=== PATIENT | female | born 1940 | race Caucasian/White ===

== ENCOUNTER 2019-01-14 06:49 | Inpatient (IN) | payer MEDICARE, OTHER ==
[2019-01-14] MEDS ORDERED: NS 0.9% 1000 ML** 1,000 ML IV ONE ×2 (07:18→11:47)
[2019-01-14] MEDS ORDERED: Morphine 4 MG/ML VIAL (1 ml) 4 MG/ML VIAL IV ONE (07:18)
[2019-01-14] MEDS ORDERED: Morphine 10 MG/ML VIAL (1 ml) IV ONE (07:18)
--- NOTE | 2019-01-14 07:25 | ED ---
Abdominal Pain/Female - HPI Summary HPI Summary: Pt is an 78 y/o F presenting to the ED for a chief complaint of abdominal pain onset at 01:00 this date that is still present in the middle of her abd and radiates to her back. She reports it beginning with N/V/D, fever, chills, and diaphoresis. She states she has frequently had similar sx, initially beginning 10 yrs ago for which she was treated with abx for a bowel blockage that developed into sepsis, causing her to spend 1 month in the ICU. The most recent episode was 1yr ago on vacation in [place] which she was given pain medication and abx for. She has had a partial colectomy. She denies vaginal discharge, vaginal bleeding, dysuria, hematuria, or blood in the vomit or stool. She notes hx of skipped heartbeats for which she takes medication. Denies a PMHx of DM or HTN. She is allergic to contrast dye and shellfish, but she is unsure the last time she had IV contrast dye. Medications reviewed. Allergies noted. - History of Current Complaint Chief Complaint: EDAbdPain Stated Complaint: ABD PAIN PER EMS Time Seen by Provider: 01/14/19 06:59 Hx Obtained From: Patient Onset/Duration: Sudden Onset, Lasting Hours, Still Present Timing: Hours Severity Initially: Moderate Severity Currently: Moderate Pain Intensity: 7 Pain Scale Used: 0-10 Numeric Location: Diffuse Radiates: Yes Radiates to: Back Aggravating Factor(s): Nothing Associated Signs and Symptoms: Positive: Diaphoresis, Fever, Back Pain, Nausea, Vomiting, Diarrhea. Negative: Blood in Stool, Urinary Symptoms, Vaginal Bleeding, Vaginal Discharge Allergies/Adverse Reactions: Allergies Allergy/AdvReac Type Severity Reaction Status Date / Time Iodinated Contrast Media Allergy Rash Verified 01/14/19 06:56 Home Medications: Home Medications Aspirin 325 mg PO DAILY 01/14/19 [History Confirmed 01/14/19] Digoxin 0.125 mg PO DAILY 01/14/19 [History Confirmed 01/14/19] Flecainide Acetate 50 mg PO BID 01/14/19 [History Confirmed 01/14/19] Oxazepam 10 mg PO DAILY 01/14/19 [History Confirmed 01/14/19] Premarin 0.625 mg VAGINAL DAILY 01/14/19 [History Confirmed 01/14/19] Simvastatin 20 mg PO DAILY 01/14/19 [History Confirmed 01/14/19] Synthroid 50 mcg PO DAILY 01/14/19 [History Confirmed 01/14/19] PMH/Surg Hx/FS Hx/Imm Hx Previously Healthy: Yes Endocrine/Hematology History: Denies: Hx Diabetes Cardiovascular History: Denies: Hx Hypertension Infectious Disease History: No Infectious Disease History: Denies: Traveled Outside the [place] in Last 30 Days - Social History Lives: With Family Alcohol Use: Daily Alcohol Amount: glass of wine Hx Substance Use: No Substance Use Type: Reports: None Hx Tobacco Use: No Smoking Status (MU): Never Smoked Tobacco Review of Systems Positive: Fever, Chills, Skin Diaphoresis Positive: Abdominal Pain, Vomiting, Diarrhea, Nausea. Negative: Other - blood in stool or vomit Positive: other - negative vaginal bleeding. Negative: dysuria, discharge, hematuria All Other Systems Reviewed And Are Negative: Yes Physical Exam - Summary Physical Exam Summary: Constitutional: Well-developed, Well-nourished, Alert. (-) Distressed Skin: Warm, Dry HENT: Normocephalic; Atraumatic Eyes: Conjunctiva normal Neck: Musculoskeletal ROM normal neck. (-) JVD, (-) Stridor, (-) Tracheal deviation Cardio: Rhythm regular, rate normal, Heart sounds normal; Intact distal pulses; The pedal pulses are 2+ and symmetric. Radial pulses are 2+ and symmetric. (-) Murmur Pulmonary/Chest wall: Effort normal. (-) Respiratory distress, (-) Wheezes, (-) Rales Abd: Soft, (-) tenderness, (-) Distension, (-) Guarding, (-) Rebound. Tenderness in the mid-epigastrium, LUQ, and RUQ. Musculoskeletal: (-) Edema Lymph: (-) Cervical adenopathy Neuro: Alert, Oriented x3 Psych: Mood and affect Normal Triage Information Reviewed: Yes Vital Signs On Initial Exam: Initial Vitals Pulse Pulse Ox 81 95 01/14/19 06:51 01/14/19 06:51 Vital Signs Reviewed: Yes Diagnostics - Vital Signs Vital Signs Temp Pulse Resp BP Pulse Ox 01/14/19 07:00 84 94 01/14/19 06:53 86 194/78 96 01/14/19 06:52 97.0 F 77 16 194/78 94 01/14/19 06:51 81 95 - Laboratory Result Diagrams: 01/14/19 07:26 01/14/19 07:26 Lab Statement: Any lab studies that have been ordered have been reviewed, and results considered in the medical decision making process. - CT CT Abdomen/Pelvis CT Interpretation Completed By: Radiologist Summary of CT Findings: CT abdomen/pelvis IMPRESSION: 1. DISTENDED AND MILDLY DILATED LOOPS OF SMALL BOWEL PROXIMALLY WITH DECOMPRESSED LOOPS. DISTALLY CONSISTENT WITH EARLY OR PARTIAL/INTERMITTENT SMALL BOWEL OBSTRUCTION. 2. SMALL AMOUNT OF FREE FLUID WITHIN THE ABDOMEN. Reviewed by ED physician. Re-Evaluation - Re-Evaluation 1st re-eval Re-Evaluation Time: 10:39 Change: Unchanged Comment: Pt does not want to stay in hospital. Will discuss with and reaccess. 2nd re-eval Re-Evaluation Time: 10:54 Change: Unchanged Comment: Pt agrees to stay in the hospital. Abdominal Pain Fem Course/Dx - Course Course Of Treatment: Patient is here with a partial bowel obstruction. Patient Leia performed which is grossly unremarkable. Patient's a partial bowel OBSTRUCTION PER her CT scan. Patient is admitted to medicine with a surgery consult. - Diagnoses Provider Diagnoses: Partial bowel obstruction, Left sided abdominal pain, Nausea & vomiting - Provider Notifications Discussed Care Of Patient With: Mellissa Lunsford Time Discussed With Above Provider: 10:56 Instructed by Provider To: Admit As Inpatient Discharge ED - Sign-Out/Discharge Documenting (check all that apply): Patient Departure - Discharge Plan Condition: Stable Disposition: ADMITTED TO [facility] - Billing Disposition and Condition Condition: STABLE Disposition: Admitted to [facility] - Attestation Statements Document Initiated by Alissaibe: Yes Documenting Scribe: Tenisha Woodard Provider For Whom Johanne is Documenting (Include Credential): Jace Rodriguez MD. Scribe Attestation: Tari Santana Kathryn O'Connor, alissaibed for Jace Rodriguez MD. on 01/14/19 at 1820. Scribe Documentation Reviewed: Yes Provider Attestation: The documentation as recorded by the scribe, Tenisha Woodard accurately reflects the service I personally performed and the decisions made by , Jace Rodriguez MD. Status of Scribe Document: Viewed Consult Consult: I spoke with Dr. Rodriguez in Surgery at 1029 who will evaluate the pt and I will speak to hospitalist soon. 1056 - I spoke with Dr. Lunsford who will be accepting the pt to [facility].
[2019-01-14 07:37] LABS: ABS Lymphocytes 0.6 10^3/ul (1.0-4.8); ABS Monocytes 0.4 10^3/ul (0-0.8); ABS Neutrophils 8.6 10^3/ul (1.5-7.7); Eosinophil % 0.2 %; Hematocrit 42 % (35-47); Hemoglobin 14.7 g/dL (12.0-16.0); Lymphocyte % 6.5 %; Mean Corpuscular HGB Conc 35 g/dL (31-36); Mean Corpuscular Hemoglobin 34 pg (27-31); Mean Corpuscular Volume 97 fL (80-97); Mean Platelet Volume 7.5 fL (7.4-10.4); Platelet Count 259 10^3/uL (150-450); Red Blood Count 4.35 10^6 /uL (3.70-4.87); Red Cell Distribution Width 13 % (10-15); White Blood Count 9.7 10^3/uL (3.5-10.8)
[2019-01-14 07:56] LABS: Albumin 4.4 g/dL (3.2-5.2); Albumin/Globulin Ratio 1.6 (1-3); BUN/Creatinine Ratio 25.4 (8-20); Calcium 9.8 mg/dL (8.6-10.3); EGFR African American 95.8 (>60); EGFR Non-African American 79.2 (>60); Globulin 2.7 g/dL (2-4); Potassium 4.5 mmol/L (3.5-5.0); Total Bilirubin 0.5 mg/dL (0.2-1.0); Total Protein 7.1 g/dL (6.4-8.9)
[2019-01-14 09:07] LABS: Urine Appearance Cloudy; Urine Bilirubin Negative (Negative); Urine Blood Negative (Negative); Urine Color Yellow; Urine Glucose Negative (Negative); Urine Ketones Negative (Negative); Urine Nitrite Negative (Negative); Urine Protein Negative (Negative); Urine Specific Gravity 1.005 (1.010-1.030); Urine Urobilinogen Negative (Negative)
[2019-01-14] MEDS ORDERED: Ondansetron INJ* 2 MG/ML VIAL IV ONE (11:47)
[2019-01-14] MEDS ORDERED: hydrALAZINE IV* 20 MG/ML VIAL IV SLOW PU PRN (12:38)
[2019-01-14] MEDS ORDERED: Al Hydrox/Mg Hydrox/Simet LIQ* 30 ML UDC PO PRN (13:16)
[2019-01-14 13:20] LABS: Digoxin 0.7 ng/ml (0.8-2.0)
[2019-01-14] MEDS ORDERED: Lactated Ringers 1000 ML Bag* 1,000 ML IV ONE (13:24)
[2019-01-14] MEDS ORDERED: Lorazepam PYXIS KEY PRN (13:32)
[2019-01-14] MEDS ORDERED: LORazepam INJ* 2 MG/ML 1 ML VIAL IV PUSH PRN (13:32)
[2019-01-14] MEDS ORDERED: hydrALAZINE IV* 20 MG/ML VIAL IV SLOW PU ONE (14:20)
[2019-01-14] MEDS: Morphine INJ* 2 MG/ML 1 ML SYRINGE (TWO MG - NEW SYRINGE VERSION) IV PRN ×2 (14:29→21:55)
[2019-01-14] MEDS: Heparin VIAL(*) 5000 UNITS/ML VIAL (FIVE THOUSAND) SUBCUT SCH ×2 (14:29→21:55)
[2019-01-14] MEDS: NS 0.9% 1000 ML** 1,000 ML IV SCH (14:36)
--- NOTE | 2019-01-14 15:35 | HP ---
ADMISSION HISTORY AND PHYSICAL: DATE OF ADMISSION: 01/14/19 PRIMARY CARE PROVIDER: Physician in [place]. ATTENDING PHYSICIAN WHILE IN THE HOSPITAL: Dr. Jovani Bailey * (dictated by SHELBY Lockhart). CHIEF COMPLAINT: Abdominal pain, nausea, vomiting, and diarrhea. HISTORY OF PRESENT ILLNESS: Teresita Howard is an 78-year-old white female with past medical history significant for perforated SBO, status post bowel resection ; hypothyroidism; atrial fibrillation; anxiety; hyperlipidemia, who presents to the emergency department due to abdominal pain x2 days. The patient noted that she also started to have some abdominal distention starting yesterday. Starting at 1 o'clock this morning, the patient began having nausea, vomiting, and diarrhea. Her tells me that the vomiting was black or dark brown and her stool was the same color. Denies bright red blood in vomitus or per rectum. Denies coffee-ground emesis. During this episode of the onset of the vomiting and diarrhea, the patient was also feeling diaphoretic as well as feeling symptomatic fever and chills. She did not check her temperature as she is staying in a hotel. She and her are visiting from [place] and have been in the [facility] for 12 days and they had plans to leave tomorrow. The patient does understand that her hospitalization may require a longer stay than 1 overnight and agrees that it would be reasonable to stay longer if needed considering her medical situation. She denies chest pain, difficulty breathing, visual changes, headache. Denies dysuria or hematuria. ED COURSE: The patient arrived to the emergency department with vital signs of temperature 97.0 degrees Fahrenheit, pulse rate of 81, respiratory rate of 16, oxygen saturation 95% on room air, blood pressure of 194/78. The patient tells me her diffuse abdominal pain has been well controlled with morphine in the emergency department and she does feel that her nausea improved after receiving Zofran. She has not vomited since she arrived to the emergency department approximately 6 hours ago. PAST MEDICAL HISTORY: 1. Hypothyroidism. 2. Atrial fibrillation. 3. Hyperlipidemia. 4. Anxiety. 5. History of SBO perforation resulting in septic shock and a long hospital stay 10 years ago. 6. Pneumothorax in the setting of traumatic intubation. PAST SURGICAL HISTORY: 1. Bowel resection due to perforated small bowel. 2. Ileostomy or colostomy, which is uncertain from the patient. 3. Hysterectomy. 4. Tonsillectomy. HOME MEDICATIONS: 1. Aspirin 325 mg p.o. daily. 2. Digoxin 0.125 mg p.o. daily. 3. Flecainide 50 mg p.o. b.i.d. 4. Oxazepam 10 mg p.o. daily. 5. Premarin 0.25 mg apply vaginally daily. 6. Simvastatin 20 mg p.o. daily. 7. Synthroid 50 mcg p.o. daily. ALLERGIES: Reaction of rash to IODINATED CONTRAST. FAMILY HISTORY: Father at age 61 due to [place]. Mother at age 86 and the patient tells me that she was healthy and did not have chronic medical conditions. SOCIAL HISTORY: The patient is visiting from [place], [place]. She and her live together there. They have 4 children. She denies tobacco use and she was never a tobacco user. Denies drug use. Drinks 1 to 2 glasses of wine per day. 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 The patient's healthcare proxy is her , Corky Howard. His phone number is [phone]. REVIEW OF SYSTEMS: An 11-point review of systems was completed and all pertinent positives and negatives are above in the HPI. All other systems are negative. PHYSICAL EXAMINATION GENERAL: A thin elderly white female, lying in hospital bed, appearing comfortable, in no acute distress. HEENT: Head: Normocephalic, atraumatic. Eyes: PERRL. Sclerae anicteric. ENT: Mucous membranes moist. NECK: Supple without JVD. LUNGS: Clear to auscultation throughout. CARDIO: Regular rate and rhythm without murmurs, rubs, or gallops. ABDOMEN: Hypoactive bowel sounds in lower quadrants. Normoactive bowel sounds in upper quadrants. Abdomen is overall soft without distention, guarding, or tenderness to palpation. No hepatosplenomegaly. Central scar inferior to umbilicus. EXTREMITIES: No clubbing, cyanosis, edema, or calf pain. NEUROLOGIC: The patient is alert and oriented x3. No focal deficits. No tremors. PSYCH: The patient is pleasant and cooperative. DIAGNOSTIC STUDIES/LAB DATA: White blood cell count 9.7, hemoglobin 14.7, hematocrit 42, platelets 259. Sodium 130, potassium 4.5, chloride 96, carbon dioxide 28, anion gap 6, BUN 18, creatinine 0.71, glucose 132, lactic acid 1. Unremarkable LFTs. Digoxin level is 0.7. Abdomen and pelvis CT, impression: 1. Distended and mildly dilated loops of small bowel proximally with decompressed loops distally. Consistent with early or partial/intermittent small bowel obstruction. 2. Small amount of free fluid in the abdomen. 3. Postsurgical change to distal colon with diverticulosis of the distal colon. 4. Atherosclerosis. ASSESSMENT AND PLAN: Teresita Howard is an 78-year-old white female with past medical history significant for prior history of bowel obstruction resulting in perforation, hypothyroidism, atrial fibrillation, anxiety, who presents to the emergency department today due to abdominal pain, abdominal distention, nausea, vomiting, diarrhea. The patient will be admitted OBV for: 1. Partial small bowel obstruction. It appears that the patient has a bowel obstruction per CT. I will be ordering an abdomen x-ray today for comparison as we will likely need to trend this. The patient's abdominal pain and nausea have improved during her hospital stay. I do have concern that she was possibly vomiting stool contents given the coloring described by her . She has not vomited since she has been in the emergency room for the last 6 hours and because of this NG tube placement is not needed at this time. However , I placed an order to be alerted if the patient does begin vomiting and if this is the case, NG tube placement will likely be needed. I have consulted Dr. Feldman, who is aware of this patient and I appreciate his consult and if he feels that NG tube is needed now. The patient will be placed n.p.o. except for sips of water with medications. I will be giving her continuous normal saline. Lactated Ringer's is contraindicated due to IV digoxin. I will continue p.r.n. Zofran and p.r.n. morphine. 2. Hypertensive urgency. The patient had a significantly elevated blood pressure while in the emergency department. She has no past medical history of hypertension and does not take any medication for this. The highest blood pressure in the emergency department was recorded with a systolic of 205 and diastolic of 101. I have ordered p.r.n. hydralazine for a systolic blood pressure over 165 and we will continue to monitor this. The patient is asymptomatic at this time. 3. Atrial fibrillation. The patient is rate controlled at this time. I will order an EKG in case surgery if needed. I have ordered digoxin level, which appears to be minimally decreased and I will continue her digoxin IV. Given that there is no appropriate IV conversion for flecainide, this is the only medication I will continue orally with small sips of water and otherwise we will reduce pill burden with IV digoxin. I am holding her home full dose of aspirin. 4. Anxiety. The patient takes oxazepam daily at home. I will continue p.r.n. IV Ativan. 5. Hyperlipidemia. I am holding the patient's simvastatin given n.p.o. for small bowel obstruction. 6. Hypothyroidism. I will continue the patient's Synthroid with 25 mcg IV. She takes 50 mcg orally at home. I will check a TSH for tomorrow as well. 7. FEN: Normal saline at 100 cc per hour. Diet will be n.p.o. except for sips of water with meds. Electrolytes are within normal limits except for a mild hyponatremia, which is likely due to nausea, vomiting. 8. Code status: The patient is DNR/DNI. MOLST has been updated. 9. DVT prophylaxis: The patient will receive subcu heparin t.i.d. TIME SPENT: Approximately 45 minutes was spent on this admission, approximately half this time was spent at bedside evaluating the patient. This case has been reviewed by my attending, Dr. Jovani Bailey, and he agrees with this plan of care. SHELBY LOCKHART [id number]/[facility] #: [id number] MTDD
--- NOTE | 2019-01-14 17:56 | CONS ---
CC: Dr. Feldman, [facility] SURGICAL CONSULTATION NOTE: DATE OF CONSULT: 01/14/19 LOCATION: This patient was seen in room 332 at [facility] on 01/14/19. ATTENDING PHYSICIAN: Dr. Vic Feldman. CHIEF COMPLAINT: Abdominal pain associated with vomiting and diarrhea. 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 She states that the pain started after lunch yesterday after eating what she described as a large amount of ice cream as well as a chicken sandwich. She s tates that she generally avoids dairy products and typically uses Lactaid at home. She had the onset of persistent diarrhea at 1 o'clock this morning and was up most of the night; prior to coming to [facility], she vomited multiple times. She described the vomitus as dark brown to black with what a ppeared to be fecal content. 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 Her who is at the bedside today stated that the surgery was 6 hours long; the recovery was 9 hours long and she was on a ventilator for 3 weeks in the intensive care un it; this was followed by 2 weeks in a prison for rehabilitation. She also states that 1 year a go on vacation in [place], she had another episode of small bowel obstruction for which she was given a ntibiotics and pain medication. Currently, she reports the pain at 5/10. She has received morphine with good relief and also has received an antiemetic with relief of her nausea. She vomited here in the hospital after drinking the oral contrast for the CAT scan. The CAT scan of the abdomen and pelv is revealed distended and mildly dilated loops of small bowel proximally with decompressed loops dist ally with transition occurring in the mid abdomen anteriorly and postsurgical change in the distal co suleiman; there was also a small ventral hernia containing sidewall of large bowel noted, no free air. Abd ominal plain film revealed moderately distended loops of small bowel in the left upper quadrant. Her white blood cell count was normal at 9.7, lactic acid was normal at 1.0, sodium was low at 130, chlo ride was low at 96 and glucose was elevated at 132. PAST MEDICAL HISTORY: Significant for what she describes as "skipped heartbeats" and is followed by a space scheduler, but does not think she has ever been diagnosed with atrial fibrillation. TIA left ey e x2. PAST SURGICAL HISTORY: As described in history of present illness as well as having had a hysterecto my and the ovaries were spared and then a tonsillectomy many years ago. MEDICATIONS: Include: 1. Aspirin 325 mg p.o. daily. 2. Digoxin 0.125 mg p.o. daily. 3. Flecainide 50 mg p.o. daily. 4. Synthroid 50 mcg p.o. daily. 5. Simvastatin 20 mg p.o. daily. 6. Premarin 0.625 mg p.o. daily. 7. Oxazepam 10 mg p.o. daily. ALLERGIES: IODINATED CONTRAST MATERIAL and SHELLFISH. FAMILY HISTORY: No known anesthesia complications, bleeding tendencies, or clotting disorders. SOCIAL HISTORY: She is and her is at the bedside; she lives in [place] and th ey have been travelling in the [place] recently. She states they were on the way home from the [place] and stopped in [place] because of feeling unwell. She drinks 1 glass of wine daily and has never smoked cigarettes. She denies the use of other substances. REVIEW OF SYSTEMS: Constitutional: She feels chilled currently, but is afebrile. No excessive fatig ue or unintended weight loss. Endocrine: No diabetes. She is on thyroid supplementation. Respirat ory: No shortness of breath or chronic cough. Cardiovascular: No anginal chest pain or palpitations . No history of myocardial infarction. Her blood pressure was as high as 212/72 initially, but has come down into the 139/63 range. Gastrointestinal: As described in history of present illness. Gen itourinary: No dysuria. No hematuria. Musculoskeletal: Normal strength and tone. Neurologic: No blurred vision or headache. 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 General: No previous anesthesia complications. No bleedin g tendencies and she has never received a blood transfusion. No history of deep vein thrombosis or p ulmonary embolism. PHYSICAL EXAM: The patient is an 78-year-old female, well developed, well nourished, lying in bed, i n no acute distress. Height 5 feet 2 inches, weight 130 pounds, body mass index 23.8. Temperature 9 8.3 oral, heart rate 104, respiratory rate 20, O2 saturation on room air 96%, blood pressure 139/63. Skin: Warm, dry, intact. HEENT: Benign. Neck: Supple. No cervical lymphadenopathy. Lungs: Ernestina ath sounds bilaterally clear and equal. Heart: Regular rate and rhythm. No murmurs or rubs appreci ated. Abdomen: Quiet; well healed midline surgical scar and left lower quadrant scar likely from pr evious colostomy reversal; tympanitic, exquisitely tender in the left upper quadrant with mild guardi ng and there is also generalized tenderness throughout, but definitely left greater than right. The abdomen is distended, but soft to palpation except over the left upper quadrant where there is more f ullness. Pelvic and rectal exams deferred. Extremities are warm without edema or skin ulceration. Neurologic: Alert and oriented x3. 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 She also had what she describes as a "bowel blockage" 1 year ago on vacation in [place] which resolved with antibiotics and pain medication. She was admitted on the hospitalist service and has been kept n.p.o. and is being resuscitated with IV fluids and has analgesics and antiemetics as needed; her white blood cell count is within normal limits. There is no evidence of free air or diverticulitis on the CAT scan at this time. She is afe brile. PLAN: We will follow the patient along with the hospitalist service; she will have CBC and chem prof ile and an abdominal film in the morning. TIME SPENT: I spent 75 minutes with greater than 50% in history taking, physical examination, and di scussing the situation with the patient and her and coordination of care. All of their quest ions have been answered. The patient has signed a DNR form in the emergency department and her husba nd expressed anxiety about what they had been through 10 years ago in [place]. TERRY YU, MICHAEL [id number]/[facility] #: [id number]
[2019-01-14] MEDS: Ondansetron INJ* 2 MG/ML VIAL IV PRN (22:02)
[2019-01-14] MEDS: Flecainide TAB* 100 MG PO SCH (23:20)
[2019-01-15] MEDS: NS 0.9% 1000 ML** 1,000 ML IV SCH ×3 (00:46→21:52)
[2019-01-15] MEDS: Morphine INJ* 2 MG/ML 1 ML SYRINGE (TWO MG - NEW SYRINGE VERSION) IV PRN ×5 (03:25→20:31)
[2019-01-15] MEDS: Heparin VIAL(*) 5000 UNITS/ML VIAL (FIVE THOUSAND) SUBCUT SCH ×3 (05:37→21:53)
[2019-01-15 05:49] LABS: ABS Lymphocytes 0.8 10^3/ul (1.0-4.8); ABS Monocytes 0.9 10^3/ul (0-0.8); ABS Neutrophils 5.5 10^3/ul (1.5-7.7); Hematocrit 38 % (35-47); Lymphocyte % 10.6 %; Mean Corpuscular HGB Conc 35 g/dL (31-36); Mean Corpuscular Hemoglobin 34 pg (27-31); Mean Corpuscular Volume 97 fL (80-97); Mean Platelet Volume 7.6 fL (7.4-10.4); Platelet Count 251 10^3/uL (150-450); Red Blood Count 3.88 10^6 /uL (3.70-4.87); Red Cell Distribution Width 13 % (10-15); White Blood Count 7.1 10^3/uL (3.5-10.8)
[2019-01-15] MEDS ORDERED: Levothyroxine INJ* 100 MCG/5 ML VIAL IV SCH (06:00)
[2019-01-15 06:08] LABS: Albumin 3.7 g/dL (3.2-5.2); Albumin/Globulin Ratio 1.6 (1-3); BUN/Creatinine Ratio 20.8 (8-20); Calcium 8.3 mg/dL (8.6-10.3); EGFR African American 134.3 (>60); Globulin 2.3 g/dL (2-4); Potassium 3.6 mmol/L (3.5-5.0); Total Bilirubin 0.5 mg/dL (0.2-1.0)
[2019-01-15 06:28] LABS: TSH (Thyroid Stimulating Horm) 1.9 mcIU/mL (0.34-5.60)
[2019-01-15] MEDS: Ondansetron INJ* 2 MG/ML VIAL IV PRN ×4 (07:41→20:33)
[2019-01-15] MEDS: Digoxin IV* 0.5 MG/2 ML AMP (0.25 MG/ML) IV SLOW PU SCH (09:44)
[2019-01-15] MEDS: Flecainide TAB* 100 MG PO SCH ×2 (09:47→21:55)
--- NOTE | 2019-01-15 10:27 | PN ---
Subjective Date of Service: 01/15/19 Interval History: Patient is feeling somewhat better today. Patient denies N/V or abdominal pain, but is needing IV pain control and anti-emetics. Patient is not passing flatus or having BMs. Patient states she was able to be treated in [place] without IV support previously. Patient denies F/C, CP, SOB, dizziness, or other pain. Family History: Unchanged from Admission Social History: Unchanged from Admission Past Medical History: Unchanged from Admission Objective Active Medications: Al Hydrox/Mg Hydrox/Simethicone (Maalox Plus*) 30 ml PO Q6H PRN PRN Reason: INDIGESTION Digoxin (Digoxin Iv*) 0.125 mg IV SLOW PU DAILY [facility] Last Admin: 01/15/19 09:44 Dose: 0.125 mg Flecainide Acetate (Tambocor Tab*) 50 mg PO BID [facility] Last Admin: 01/15/19 09:47 Dose: 50 mg Heparin Sodium (Porcine) (Heparin Vial(*)) 5,000 units SUBCUT Q8HR [facility] Last Admin: 01/15/19 05:37 Dose: 5,000 units Hydralazine HCl (Apresoline Iv*) 5 mg IV SLOW PU Q6H PRN PRN Reason: SYSTOLIC BP GREATER THAN: Last Admin: 01/14/19 12:47 Dose: 5 mg Sodium Chloride (Ns 0.9% 1000 Ml) 1,000 mls @ 100 mls/hr IV PER RATE [facility] Last Admin: 01/15/19 00:46 Dose: 100 mls/hr Levothyroxine Sodium (Synthroid Inj*) 25 mcg IV 0600 [facility] Last Admin: 01/15/19 05:35 Dose: 25 mcg Lorazepam (Ativan Inj*) 0.5 mg IV PUSH Q8H PRN PRN Reason: ANXIETY Last Admin: 01/14/19 17:52 Dose: 0.5 mg Miscellaneous (Ativan Pyxis Quintanilla) 1 ea N/A .ATIVAN IV QUINTANILLA PRN PRN Reason: PYXIS QUINTANILLA Morphine Sulfate (Morphine Inj (Syringe))*) 2 mg IV Q4H PRN PRN Reason: PAIN - SEVERE Last Admin: 01/15/19 07:42 Dose: 2 mg Ondansetron HCl (Zofran Inj*) 4 mg IV Q4H PRN PRN Reason: NAUSEA/VOMITING Last Admin: 01/15/19 07:41 Dose: 4 mg Vital Signs - 8 hr 01/15/19 01/15/19 01/15/19 03:13 03:25 07:16 Temperature 99.2 F 98.0 F Pulse Rate 99 88 Respiratory 16 16 18 Rate Blood Pressure 159/62 142/59 (mmHg) O2 Sat by Pulse 93 95 Oximetry 01/15/19 01/15/19 01/15/19 07:42 07:48 09:43 Temperature Pulse Rate Respiratory 18 16 18 Rate Blood Pressure (mmHg) O2 Sat by Pulse Oximetry 01/15/19 09:44 Temperature Pulse Rate 85 Respiratory Rate Blood Pressure (mmHg) O2 Sat by Pulse Oximetry Oxygen Devices in Use Now: None Appearance: Patient is an 78yo female who appears stated age and is sitting in the bed in NAD. Eyes: No Scleral Icterus, PERRLA Ears/Nose/Mouth/Throat: NL Teeth, Lips, Gums, Clear Oropharnyx, Mucous Membranes Moist Neck: NL Appearance and Movements; NL JVP, Trachea Midline Respiratory: Symmetrical Chest Expansion and Respiratory Effort, Clear to Auscultation Cardiovascular: NL Sounds; No Murmurs; No JVD, RRR, No Edema Abdominal: No Hepatosplenomegaly, - - Distended, Hypertympanic to percussion, hyperactive bowel sounds with high pitched tinkles. Lymphatic: No Cervical Adenopathy Extremities: No Edema, No Clubbing, Cyanosis Skin: No Rash or Ulcers, No Nodules or Sclerosis Neurological: Alert and Oriented x 3, NL Sensation, NL Muscle Strength and Tone , - - CN II-XII intact. Result Diagrams: 01/15/19 05:03 01/15/19 05:03 Assess/Plan/Problems-Billing Assessment: Patient is an 78yo female with a PMH for previous ruptured diverticulitis requiring mikki's procedure with reversal, previous SBO, Afib, here with recurrent SBO, improving slowly with conservative management. - Patient Problems (1) SBO (small bowel obstruction) Current Visit: Yes Status: Acute Code(s): K56.609 - UNSP INTESTNL OBST, UNSP TO PARTIAL VERSUS COMPLETE OBST SNOMED Code(s): 715621218 Comment: - Conservative management. - Nausea and pain able to be controlled with IV meds - Continue fluids, advance diet when passing gas - Appreciate Surgical Input - Daily KUB - Likely related to Adhesions. (2) Afib Current Visit: Yes Status: Acute Code(s): I48.91 - UNSPECIFIED ATRIAL FIBRILLATION SNOMED Code(s): 10188479 Comment: - Continue IV digoxin and flecainide - Rhythm controlled at this time. - Not anticoagulated except for Full Dose ASA - CHADs- Vasc of 2 (3) DVT prophylaxis Current Visit: Yes Status: Acute Code(s): Z29.9 - ENCOUNTER FOR PROPHYLACTIC MEASURES, UNSPECIFIED SNOMED Code(s): 817350177 Comment: - Heparin SubQ (4) Full code status Current Visit: Yes Status: Acute Code(s): Z78.9 - OTHER SPECIFIED HEALTH STATUS SNOMED Code(s): 477496572 Status and Disposition: Inpatient, Patient and family have stated they will likely leave tomorrow regardless of clinical status, Will reassess the need for AMA discharge if indicated.
--- NOTE | 2019-01-15 13:42 | PN ---
Progress Note - Progress Note Date of Service: 01/15/19 SOAP: Subjective:no flatus,abd pain rated 5/10,no vomiting,mild nausea [] Objective: Vital Signs Temp 98.6 F 01/15/19 11:17 Pulse 82 01/15/19 11:17 Resp 16 01/15/19 12:10 BP 161/65 01/15/19 11:17 Pulse Ox 96 01/15/19 11:17 Intake & Output 01/14/19 01/15/19 01/15/19 18:59 06:59 18:59 Intake Total 1999 990 980 Output Total 650 860 350 Balance 1350 130 630 Weight 130 lb Intake: IV Fluids 1999 990 980 NS (0.9%) 990 980 Oral 0 Output: Urine 650 800 350 Emesis 60 Laboratory Last Values WBC 7.1 10^3/uL (3.5-10.8) 01/15/19 05:03 RBC 3.88 10^6 /uL (3.70-4.87) 01/15/19 05:03 Hgb 13.0 g/dL (12.0-16.0) 01/15/19 05:03 Hct 38 % (35-47) 01/15/19 05:03 MCV 97 fL (80-97) 01/15/19 05:03 MCH 34 pg (27-31) H 01/15/19 05:03 MCHC 35 g/dL (31-36) 01/15/19 05:03 RDW 13 % (10-15) 01/15/19 05:03 Plt Count 251 10^3/uL (150-450) 01/15/19 05:03 MPV 7.6 fL (7.4-10.4) 01/15/19 05:03 Neut % (Auto) 77.0 % 01/15/19 05:03 Lymph % (Auto) 10.6 % 01/15/19 05:03 [place] % (Auto) 12.2 % 01/15/19 05:03 Eos % (Auto) 0.0 % 01/15/19 05:03 Baso % (Auto) 0.2 % 01/15/19 05:03 Absolute Neuts (auto) 5.5 10^3/ul (1.5-7.7) 01/15/19 05:03 Absolute Lymphs (auto) 0.8 10^3/ul (1.0-4.8) L 01/15/19 05:03 Absolute Monos (auto) 0.9 10^3/ul (0-0.8) H 01/15/19 05:03 Absolute Eos (auto) 0.0 10^3/ul (0-0.6) 01/15/19 05:03 Absolute Basos (auto) 0.0 10^3/ul (0-0.2) 01/15/19 05:03 Absolute Nucleated RBC 0.0 10^3/ul 01/15/19 05:03 Nucleated RBC % 0.0 01/15/19 05:03 Sodium 137 mmol/L (135-145) 01/15/19 05:03 Potassium 3.6 mmol/L (3.5-5.0) 01/15/19 05:03 Chloride 105 mmol/L (101-111) 01/15/19 05:03 Carbon Dioxide 25 mmol/L (22-32) 01/15/19 05:03 Anion Gap 7 mmol/L (2-11) 01/15/19 05:03 BUN 11 mg/dL (6-24) 01/15/19 05:03 Creatinine 0.53 mg/dL (0.51-0.95) 01/15/19 05:03 Est GFR ( Amer) 134.3 (>60) 01/15/19 05:03 Est GFR (Non-Af Amer) 111.0 (>60) 01/15/19 05:03 BUN/Creatinine Ratio 20.8 (8-20) H 01/15/19 05:03 Glucose 114 mg/dL (70-100) H 01/15/19 05:03 Lactic Acid 1.0 mmol/L (0.5-2.0) 01/14/19 07:26 Calcium 8.3 mg/dL (8.6-10.3) L 01/15/19 05:03 Total Bilirubin 0.50 mg/dL (0.2-1.0) 01/15/19 05:03 AST 19 U/L (13-39) 01/15/19 05:03 ALT 13 U/L (7-52) 01/15/19 05:03 Alkaline Phosphatase 58 U/L (34-104) 01/15/19 05:03 Total Protein 6.0 g/dL (6.4-8.9) L 01/15/19 05:03 Albumin 3.7 g/dL (3.2-5.2) 01/15/19 05:03 Globulin 2.3 g/dL (2-4) 01/15/19 05:03 Albumin/Globulin Ratio 1.6 (1-3) 01/15/19 05:03 Lipase 34 U/L (11.0-82.0) 01/14/19 07:26 TSH 1.90 mcIU/mL (0.34-5.60) 01/15/19 05:03 Urine Color Yellow 01/14/19 08:50 Urine Appearance Cloudy 01/14/19 08:50 Urine pH 8.0 (5-9) 01/14/19 08:50 Ur Specific [place] 1.005 (1.010-1.030) L 01/14/19 08:50 Urine Protein Negative (Negative) 01/14/19 08:50 Urine Ketones Negative (Negative) 01/14/19 08:50 Urine Blood Negative (Negative) 01/14/19 08:50 Urine Nitrate Negative (Negative) 01/14/19 08:50 Urine Bilirubin Negative (Negative) 01/14/19 08:50 Urine Urobilinogen Negative (Negative) 01/14/19 08:50 Ur Leukocyte Esterase Negative (Negative) 01/14/19 08:50 Urine Glucose Negative (Negative) 01/14/19 08:50 Digoxin 0.7 ng/ml (0.8-2.0) L 01/14/19 07:26 []Patient Name: MARIELLA MILLER Medical Record#: [id number] Ordering Physician: SHELBY Christian Acct.#: [id number] : 1940 Age: 78 Sex: F Location: SURGICAL STAY UNIT Exam Date: 01/15/19 0800 ADM Status: ADM Martha Order Information: ABDOMEN/KUB 1 VW Accession Number: [id number] CPT: 50505 Indication: Small bowel obstruction Flat and upright views of the abdomen demonstrates dilated loops of bowel in the left upper quadrant with some gas in the right colon. Overall appearance does not appear to be significantly changed since January 14, 2019. IMPRESSION: Dilated loops of bowel in the left abdomen which is similar to that identified previously. No definite pneumonia is identified. <Electronically signed by Chely Quezada MD in [place]> 01/15/19 0957 Assessment:abd:hypoactive bs;softly distended;less tender LUQ,no guarding,no rebound;no masses [] Plan:less pain,AXR with gas in colon but no flatus yet continue NPO until passes flatus;IV fluids repeat AXR 01/16/19;will follow []
[2019-01-16] MEDS: Ondansetron INJ* 2 MG/ML VIAL IV PRN ×3 (01:04→10:14)
[2019-01-16] MEDS: Morphine INJ* 2 MG/ML 1 ML SYRINGE (TWO MG - NEW SYRINGE VERSION) IV PRN ×3 (01:06→10:13)
[2019-01-16 06:01] LABS: ABS Monocytes 0.6 10^3/ul (0-0.8); ABS Neutrophils 3.4 10^3/ul (1.5-7.7); Eosinophil % 0.1 %; Hematocrit 38 % (35-47); Mean Corpuscular HGB Conc 34 g/dL (31-36); Mean Corpuscular Hemoglobin 33 pg (27-31); Mean Corpuscular Volume 98 fL (80-97); Mean Platelet Volume 7.6 fL (7.4-10.4); Nucleated Red Blood Cells % 0.1; Platelet Count 214 10^3/uL (150-450); Red Blood Count 3.89 10^6 /uL (3.70-4.87); Red Cell Distribution Width 13 % (10-15); White Blood Count 5.1 10^3/uL (3.5-10.8)
[2019-01-16] MEDS: Heparin VIAL(*) 5000 UNITS/ML VIAL (FIVE THOUSAND) SUBCUT SCH ×3 (06:01→21:47)
[2019-01-16] MEDS: Levothyroxine TAB* 50 MCG TAB PO SCH (06:04)
[2019-01-16 06:13] LABS: BUN/Creatinine Ratio 19.6 (8-20); Calcium 8.3 mg/dL (8.6-10.3); EGFR African American 140.4 (>60); Magnesium 2.1 mg/dL (1.9-2.7); Potassium 3.1 mmol/L (3.5-5.0)
[2019-01-16] MEDS: Flecainide TAB* 100 MG PO SCH ×2 (07:44→21:47)
[2019-01-16] MEDS: NS 0.9% 1000 ML** 1,000 ML IV SCH ×2 (07:49→17:05)
[2019-01-16] MEDS: Digoxin IV* 0.5 MG/2 ML AMP (0.25 MG/ML) IV SLOW PU SCH (07:58)
[2019-01-16] MEDS ORDERED: Ketorolac INJ* 15 MG/ML 1 ML VIAL IV PUSH ONE (09:37)
[2019-01-16] MEDS ORDERED: Acetaminophen SUPP* 650 MG SUPP PR PRN (09:38)
--- NOTE | 2019-01-16 09:48 | PN ---
Subjective Date of Service: 01/16/19 Interval History: c/o severe pain.hesitant to take morphine as worried it would bind her up. not passed gas yet Family History: Unchanged from Admission Social History: Unchanged from Admission Past Medical History: Unchanged from Admission Objective Active Medications: Acetaminophen (Tylenol Supp*) 650 mg [place] Q6H PRN PRN Reason: PAIN - MODERATE Al Hydrox/Mg Hydrox/Simethicone (Maalox Plus*) 30 ml PO Q6H PRN PRN Reason: INDIGESTION Digoxin (Digoxin Iv*) 0.125 mg IV SLOW PU DAILY [facility] Last Admin: 01/16/19 07:58 Dose: 0.125 mg Flecainide Acetate (Tambocor Tab*) 50 mg PO BID [facility] Last Admin: 01/16/19 07:44 Dose: 50 mg Heparin Sodium (Porcine) (Heparin Vial(*)) 5,000 units SUBCUT Q8HR [facility] Last Admin: 01/16/19 06:01 Dose: 5,000 units Sodium Chloride (Ns 0.9% 1000 Ml) 1,000 mls @ 100 mls/hr IV PER RATE [facility] Last Admin: 01/16/19 07:49 Dose: 100 mls/hr Levothyroxine Sodium (Synthroid Tab*) 50 mcg PO DAILY@0600 [facility] Last Admin: 01/16/19 06:04 Dose: 50 mcg Lorazepam (Ativan Inj*) 0.5 mg IV PUSH Q8H PRN PRN Reason: ANXIETY Last Admin: 01/14/19 17:52 Dose: 0.5 mg Miscellaneous (Ativan Pyxis Quintanilla) 1 ea N/A .ATIVAN IV QUINTANILLA PRN PRN Reason: PYXIS QUINTANILLA Morphine Sulfate (Morphine Inj (Syringe))*) 2 mg IV Q4H PRN PRN Reason: PAIN - SEVERE Last Admin: 01/16/19 05:59 Dose: 2 mg Ondansetron HCl (Zofran Inj*) 4 mg IV Q4H PRN PRN Reason: NAUSEA/VOMITING Last Admin: 01/16/19 05:58 Dose: 4 mg Vital Signs - 8 hr 01/16/19 01/16/19 01/16/19 02:40 03:10 05:59 Temperature 98.4 F Pulse Rate 89 Respiratory 16 16 16 Rate Blood Pressure 170/65 (mmHg) O2 Sat by Pulse 95 Oximetry 01/16/19 01/16/19 01/16/19 07:22 07:49 07:58 Temperature 99.1 F Pulse Rate 85 83 Respiratory 16 16 Rate Blood Pressure 159/59 (mmHg) O2 Sat by Pulse 93 Oximetry 01/16/19 08:00 Temperature Pulse Rate Respiratory 16 Rate Blood Pressure (mmHg) O2 Sat by Pulse Oximetry Oxygen Devices in Use Now: None Eyes: No Scleral Icterus Ears/Nose/Mouth/Throat: NL Teeth, Lips, Gums Neck: NL Appearance and Movements; NL JVP Respiratory: Symmetrical Chest Expansion and Respiratory Effort Cardiovascular: NL Sounds; No Murmurs; No JVD Abdominal: - - distended, hypoactive bowel sounds no rebound no guarding Skin: No Rash or Ulcers Neurological: Alert and Oriented x 3 Result Diagrams: 01/16/19 05:38 01/16/19 05:38 Assess/Plan/Problems-Billing Assessment: Patient is an 78yo female with a PMH for previous ruptured diverticulitis requiring mikki's procedure with reversal, previous SBO, Afib, here with recurrent SBO, improving slowly with conservative management. - Patient Problems (1) SBO (small bowel obstruction) Current Visit: Yes Status: Acute Code(s): K56.609 - UNSP INTESTNL OBST, UNSP TO PARTIAL VERSUS COMPLETE OBST SNOMED Code(s): 532307266 Comment: - Conservative management. - Nausea and pain able to be controlled with IV meds - Continue fluids, advance diet when passing gas - Appreciate Surgical Input - Daily KUB - Likely related to Adhesions. -Will place NGT as not improving -Pt hesitant about narcotics but in extreme pain.1 dose Torodol ( no PUD) and rectal tylenol as needed -NGT to low intermittent suction (2) Afib Current Visit: Yes Status: Acute Code(s): I48.91 - UNSPECIFIED ATRIAL FIBRILLATION SNOMED Code(s): 83505741 Comment: - Continue IV digoxin and flecainide - Rhythm controlled at this time. - Not anticoagulated except for Full Dose ASA - CHADs- Vasc of 2 -On dig and flecanaide and no anticoagulation as an outpt (3) Full code status Current Visit: Yes Status: Acute Code(s): Z78.9 - OTHER SPECIFIED HEALTH STATUS SNOMED Code(s): 672592901 (4) DVT prophylaxis Current Visit: Yes Status: Acute Code(s): Z29.9 - ENCOUNTER FOR PROPHYLACTIC MEASURES, UNSPECIFIED SNOMED Code(s): 458867461 Comment: - Heparin SubQ Status and Disposition: Inpatient, Patient and family have stated they will likely leave tomorrow regardless of clinical status, Will reassess the need for AMA discharge if indicated.
[2019-01-16] MEDS: Pantoprazole IV* 40 MG IV SCH (11:34)
--- NOTE | 2019-01-16 14:11 | PN ---
Progress Note - Progress Note Date of Service: 01/16/19 SOAP: Subjective:less pain since NG placed;no flatus [] Objective: Vital Signs Temp 98.7 F 01/16/19 11:29 Pulse 81 01/16/19 11:29 Resp 16 01/16/19 11:48 BP 155/60 01/16/19 11:29 Pulse Ox 95 01/16/19 11:29 Intake & Output 01/15/19 01/16/19 01/16/19 18:59 06:59 18:59 Intake Total 1220 0 980 Output Total 1050 1080 350 Balance 170 -1080 630 Intake: IV Fluids 980 980 NS (0.9%) 980 980 Oral 240 0 Output: NG Tube Drainage Amount 50 Urine 1050 1080 300 Laboratory Results - last 24 hr 01/16/19 01/16/19 05:38 05:38 WBC 5.1 RBC 3.89 Hgb 13.0 Hct 38 MCV 98 H MCH 33 H MCHC 34 RDW 13 Plt Count 214 MPV 7.6 Neut % (Auto) 67.0 Lymph % (Auto) 20.0 [place] % (Auto) 12.4 Eos % (Auto) 0.1 Baso % (Auto) 0.5 Absolute Neuts (auto) 3.4 Absolute Lymphs (auto) 1.0 Absolute Monos (auto) 0.6 Absolute Eos (auto) 0.0 Absolute Basos (auto) 0.0 Absolute Nucleated RBC 0.0 Nucleated RBC % 0.1 Sodium 133 L Potassium 3.1 L Chloride 102 Carbon Dioxide 24 Anion Gap 7 BUN 10 Creatinine 0.51 Est GFR ( Amer) 140.4 Est GFR (Non-Af Amer) 116.0 BUN/Creatinine Ratio 19.6 Glucose 105 H Calcium 8.3 L Magnesium 2.1 abd:+bs,remains distended and tender LUQ,no guarding AXR:dilated loops small bowel,similiar to previous,?increase in colonic air [] Assessment:persistent SBO but less pain with NG in place [] Plan:continue NG,add Toradol as pt wishes to avoid Morphine,await GI function, Dr Feldman updated []
[2019-01-17] MEDS: Ketorolac INJ* 15 MG/ML 1 ML VIAL IV PUSH PRN ×3 (01:29→15:49)
[2019-01-17] MEDS: NS 0.9% 1000 ML** 1,000 ML IV SCH (03:13)
[2019-01-17 05:59] LABS: ABS Lymphocytes 1.1 10^3/ul (1.0-4.8); ABS Monocytes 0.8 10^3/ul (0-0.8); ABS Neutrophils 3.6 10^3/ul (1.5-7.7); Eosinophil % 0.7 %; Hematocrit 35 % (35-47); Hemoglobin 12.2 g/dL (12.0-16.0); Lymphocyte % 19.2 %; Mean Corpuscular HGB Conc 35 g/dL (31-36); Mean Corpuscular Hemoglobin 34 pg (27-31); Mean Corpuscular Volume 98 fL (80-97); Mean Platelet Volume 7.6 fL (7.4-10.4); Nucleated Red Blood Cells % 0.1; Platelet Count 206 10^3/uL (150-450); Red Blood Count 3.63 10^6 /uL (3.70-4.87); Red Cell Distribution Width 13 % (10-15); White Blood Count 5.5 10^3/uL (3.5-10.8)
[2019-01-17 06:09] LABS: BUN/Creatinine Ratio 23.1 (8-20); Calcium 7.9 mg/dL (8.6-10.3); EGFR African American 137.3 (>60); EGFR Non-African American 113.5 (>60)
[2019-01-17] MEDS: Heparin VIAL(*) 5000 UNITS/ML VIAL (FIVE THOUSAND) SUBCUT SCH ×3 (06:16→22:07)
[2019-01-17] MEDS: Levothyroxine TAB* 50 MCG TAB PO SCH (06:16)
[2019-01-17 06:19] LABS: Potassium 2.7 mmol/L (3.5-5.0)
[2019-01-17] MEDS: Pantoprazole IV* 40 MG IV SCH (08:32)
[2019-01-17] MEDS: Digoxin IV* 0.5 MG/2 ML AMP (0.25 MG/ML) IV SLOW PU SCH (08:33)
[2019-01-17] MEDS: KCL 20 MEQ/100 ML IVPREMIX* 20 MEQ/100 ML BAG IV SCH ×3 (08:36→16:36)
[2019-01-17] MEDS: Flecainide TAB* 100 MG PO SCH ×2 (08:37→20:16)
[2019-01-17] MEDS ORDERED: NS 0.9% 1000 ML** 1,000 ML IV SCH (09:43)
--- NOTE | 2019-01-17 09:51 | PN ---
Progress Note - Progress Note Date of Service: 01/17/19 SOAP: Subjective:passing flatus since last evening;c/o sore throat,R ear pain and nosebleed related to NG tube [] Objective: Vital Signs Temp 99.2 F 01/17/19 08:22 Pulse 80 01/17/19 08:22 Resp 16 01/17/19 08:22 BP 174/73 01/17/19 08:22 Pulse Ox 98 01/17/19 08:22 Intake & Output 01/16/19 01/17/19 01/17/19 18:59 06:59 18:59 Intake Total 1885 991 Output Total 500 2000 0 Balance 1385 -1009 0 Intake: IV Fluids 1870 991 NS (0.9%) 1870 991 Oral 0 0 NG Tube Irrigate Amount 15 Output: NG Tube Drainage Amount 100 700 Urine 400 1300 0 Laboratory Results - last 24 hr 01/17/19 01/17/19 05:23 05:23 WBC 5.5 RBC 3.63 L Hgb 12.2 Hct 35 MCV 98 H MCH 34 H MCHC 35 RDW 13 Plt Count 206 MPV 7.6 Neut % (Auto) 64.9 Lymph % (Auto) 19.2 [place] % (Auto) 14.8 Eos % (Auto) 0.7 Baso % (Auto) 0.4 Absolute Neuts (auto) 3.6 Absolute Lymphs (auto) 1.1 Absolute Monos (auto) 0.8 Absolute Eos (auto) 0.0 Absolute Basos (auto) 0.0 Absolute Nucleated RBC 0.0 Nucleated RBC % 0.1 Sodium 134 L Potassium 2.7 L* Chloride 102 Carbon Dioxide 21 L Anion Gap 11 BUN 12 Creatinine 0.52 Est GFR ( Amer) 137.3 Est GFR (Non-Af Amer) 113.5 BUN/Creatinine Ratio 23.1 H Glucose 80 Calcium 7.9 L Magnesium 2.0 abd:+bs;soft;minimal distention;nontender AXR:mild pSBO with interval improvement;air/contrast within colon which is nondistended [] Assessment:pSBO resolving hypokalemia [] Plan:discontinue NG allow sips of clears today,go slow replete K+ as ordered by Hospitalist Surgery will sign off,recall prn Dispo per Hosp []
--- NOTE | 2019-01-17 14:26 | PN ---
Subjective Date of Service: 01/17/19 Interval History: reports feeling significantly better today.passing gas.abd x ray improved Family History: Unchanged from Admission Social History: Unchanged from Admission Past Medical History: Unchanged from Admission Objective Active Medications: Acetaminophen (Tylenol Supp*) 650 mg [place] Q6H PRN PRN Reason: PAIN - MODERATE Last Admin: 01/16/19 17:05 Dose: 650 mg Al Hydrox/Mg Hydrox/Simethicone (Maalox Plus*) 30 ml PO Q6H PRN PRN Reason: INDIGESTION Digoxin (Digoxin Iv*) 0.125 mg IV SLOW PU DAILY [facility] Last Admin: 01/17/19 08:33 Dose: 0.125 mg Flecainide Acetate (Tambocor Tab*) 50 mg PO BID [facility] Last Admin: 01/17/19 08:37 Dose: 50 mg Heparin Sodium (Porcine) (Heparin Vial(*)) 5,000 units SUBCUT Q8HR [facility] Last Admin: 01/17/19 13:17 Dose: 5,000 units Sodium Chloride (Ns 0.9% 1000 Ml) 1,000 mls @ 50 mls/hr IV PER RATE [facility] Ketorolac Tromethamine (Toradol Inj*) 15 mg IV PUSH Q6H PRN PRN Reason: PAIN - MILD Last Admin: 01/17/19 08:57 Dose: 15 mg Levothyroxine Sodium (Synthroid Tab*) 50 mcg PO DAILY@0600 [facility] Last Admin: 01/17/19 06:16 Dose: 50 mcg Lorazepam (Ativan Inj*) 0.5 mg IV PUSH Q8H PRN PRN Reason: ANXIETY Last Admin: 01/14/19 17:52 Dose: 0.5 mg Miscellaneous (Ativan Pyxis Quintanilla) 1 ea N/A .ATIVAN IV QUINTANILLA PRN PRN Reason: PYXIS QUINTANILLA Ondansetron HCl (Zofran Inj*) 4 mg IV Q4H PRN PRN Reason: NAUSEA/VOMITING Last Admin: 01/16/19 10:14 Dose: 4 mg Pantoprazole Sodium (Protonix Iv*) 40 mg IV DAILY [facility] Last Admin: 01/17/19 08:32 Dose: 40 mg Vital Signs - 8 hr 01/17/19 01/17/19 01/17/19 08:00 08:22 11:54 Temperature 99.2 F 99.1 F Pulse Rate 80 79 Respiratory 16 16 16 Rate Blood Pressure 174/73 155/58 (mmHg) O2 Sat by Pulse 98 97 Oximetry Oxygen Devices in Use Now: None Eyes: No Scleral Icterus Ears/Nose/Mouth/Throat: NL Teeth, Lips, Gums Neck: NL Appearance and Movements; NL JVP Respiratory: Symmetrical Chest Expansion and Respiratory Effort Cardiovascular: NL Sounds; No Murmurs; No JVD Abdominal: NL Sounds; No Tenderness; No Distention, - - distention improved, hypoactive BS Extremities: No Edema Skin: No Rash or Ulcers Neurological: Alert and Oriented x 3 Result Diagrams: 01/17/19 05:23 01/17/19 05:23 Assess/Plan/Problems-Billing Assessment: Patient is an 78yo female with a PMH for previous ruptured diverticulitis requiring mikki's procedure with reversal, previous SBO, Afib, here with recurrent SBO, improving slowly with conservative management. - Patient Problems (1) SBO (small bowel obstruction) Current Visit: Yes Status: Acute Code(s): K56.609 - UNSP INTESTNL OBST, UNSP TO PARTIAL VERSUS COMPLETE OBST SNOMED Code(s): 721378292 Comment: - Conservative management. - Nausea and pain able to be controlled with IV meds - Continue fluids, advance diet to sips of clear - Appreciate Surgical Input - Daily KUB - Likely related to Adhesions. -Remove NGT -Repeat X ray in am (2) Afib Current Visit: Yes Status: Acute Code(s): I48.91 - UNSPECIFIED ATRIAL FIBRILLATION SNOMED Code(s): 04078036 Comment: - Continue IV digoxin and flecainide - Rhythm controlled at this time. - Not anticoagulated except for Full Dose ASA - CHADs- Vasc of 2 -On dig and flecanaide and no anticoagulation as an outpt (3) Full code status Current Visit: Yes Status: Acute Code(s): Z78.9 - OTHER SPECIFIED HEALTH STATUS SNOMED Code(s): 826028920 (4) DVT prophylaxis Current Visit: Yes Status: Acute Code(s): Z29.9 - ENCOUNTER FOR PROPHYLACTIC MEASURES, UNSPECIFIED SNOMED Code(s): 772356322 Comment: - Heparin SubQ Status and Disposition: Inpatient, Patient and family have stated they will likely leave tomorrow regardless of clinical status, Will reassess the need for AMA discharge if indicated.
[2019-01-18] MEDS: Levothyroxine TAB* 50 MCG TAB PO SCH (05:47)
[2019-01-18] MEDS: Heparin VIAL(*) 5000 UNITS/ML VIAL (FIVE THOUSAND) SUBCUT SCH ×2 (05:47→14:49)
[2019-01-18 06:38] LABS: ABS Eosinophils 0.1 10^3/ul (0-0.6); ABS Lymphocytes 1.3 10^3/ul (1.0-4.8); ABS Monocytes 0.7 10^3/ul (0-0.8); ABS Neutrophils 3.8 10^3/ul (1.5-7.7); Eosinophil % 2.5 %; Hematocrit 36 % (35-47); Hemoglobin 12.6 g/dL (12.0-16.0); Lymphocyte % 22.2 %; Mean Corpuscular HGB Conc 35 g/dL (31-36); Mean Corpuscular Hemoglobin 34 pg (27-31); Mean Corpuscular Volume 97 fL (80-97); Mean Platelet Volume 7.7 fL (7.4-10.4); Platelet Count 227 10^3/uL (150-450); Red Blood Count 3.74 10^6 /uL (3.70-4.87); Red Cell Distribution Width 13 % (10-15); White Blood Count 5.9 10^3/uL (3.5-10.8)
[2019-01-18 06:45] LABS: BUN/Creatinine Ratio 18.4 (8-20); Calcium 8.2 mg/dL (8.6-10.3); EGFR Non-African American 121.5 (>60); Potassium 2.9 mmol/L (3.5-5.0)
[2019-01-18] MEDS: Flecainide TAB* 100 MG PO SCH (10:16)
[2019-01-18] MEDS: Digoxin IV* 0.5 MG/2 ML AMP (0.25 MG/ML) IV SLOW PU SCH (10:20)
[2019-01-18] MEDS: Pantoprazole IV* 40 MG IV SCH (10:24)
[2019-01-18 11:06] VITALS: BP 156/50
[2019-01-18] MEDS ORDERED: Benzocaine/Menthol LOZ* 1 LOZENGE PO PRN (12:27)
[2019-01-18] MEDS ORDERED: Potassium Chlor TAB* 20 MEQ TAB.ER PO ONE (12:35)
[2019-01-18] MEDS: Ketorolac INJ* 15 MG/ML 1 ML VIAL IV PUSH PRN (13:06)
[2019-01-18] MEDS ORDERED: Sodium Bicarbonate (ANTACID)* 650 MG TAB PO ONE (14:39)
[2019-01-18 15:14] LABS: BUN/Creatinine Ratio 14.8 (8-20); Calcium 8.5 mg/dL (8.6-10.3); EGFR African American 131.4 (>60); EGFR Non-African American 108.6 (>60)
--- NOTE | 2019-01-18 16:03 | DS ---
ADDENDUM NOW INCLUDED ON THIS REPORT DISCHARGE SUMMARY: DATE OF ADMISSION: 01/14/19 DATE OF DISCHARGE: 01/18/19 PRIMARY DIAGNOSES: 1. Small bowel obstruction. 2. Hypokalemia. SECONDARY DIAGNOSES: 1. Hypothyroidism. 2. Atrial fibrillation. 3. Hyperlipidemia. 4. Anxiety. 5. History of small bowel obstruction and perforation resulting in septic shock and a long hospital stay 10 years ago. 6. Recent small bowel obstruction when she was in [place] 3 years ago. 7. Pneumothorax in the setting of traumatic intubation. 8. Bowel resection due to perforated small bowel. 9. 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 10. Hysterectomy. 11. Tonsillectomy. HOSPITAL COURSE: An 78-year-old female with past medical history significant for perforated SBO, status post bowel resection; hypothyroidism; atrial fibrillation; anxiety; hyperlipidemia came into the emergency room with complaints of severe abdominal pain and abdominal distention, vomiting. Please refer to the history and physical for full details. The patient lives in [place] and was visiting [facility] for the last 12 days. The patient had a CT scan done in the ER which was consistent with early/partial small bowel obstruction. The patient was admitted to the medical service and conservative management for small bowel obstruction was pursued with surgical consult. Initially, the patient did not have NG tube and was n.p.o. with IV fluids and pain control as tolerated; however, the patient's condition did not improve, the patient was in significant pain. The patient then had an NG tube placed and pain medication changed to nonnarcotic regimen with Toradol and Tylenol. The patient improved within 24 hours of NG tube placement and NG tube was removed yesterday, and the patient was placed on clear liquids yesterday and has been advanced to a full liquid diet today. The patient has also had serial abdominal x-rays done which show improvement every single day. Today's x- ray on 01/18/19 at the time of discharge shows increased oral contrast in the ascending colon, still has some distended gas loops of bowel which have decreased in caliber. This has been discussed with the patient. The patient at this time is asymptomatic with no abdominal pain, no nausea, and reports feeling well; was advanced to a full liquid diet and had some cream of wheat this morning and did well. The patient reports that she prefers going home as she is also in transition. Hence, the patient advised to be on a full liquid diet for the next 2 to 3 days and go very, very slow on advancing her diet. The patient is agreeable to this and plans to be on full liquid diet/applesauce/ Jell-O for the next 2 to 3 days. The patient also advised to follow up with her PCP in [place] when she goes back in 2 days. The patient to also have labs done as her potassium was low after NG tube suction, likely from increased GI loss. It was 2.7 and this was replaced, and today, it was 2.9 and the patient was given 60 mEq of potassium. Other than this, the patient is stable and the patient's potassium has been replaced this morning. We will also recheck her potassium level prior to discharge. With respect to her atrial fibrillation, the patient at home takes flecainide and digoxin and these have been continued. The patient is only on full dose aspirin and no other anticoagulation. Discussed this with the patient and the patient wants to continue this and has a loss prevention agent in [place] that she follows up closely with and has discussed this with him. Recommended readdressing anticoagulation and making decisions with her loss prevention agent and primary team in [place]. PHYSICAL EXAMINATION: Vitals noted to be stable at the time of of discharge; temperature 98.4, pulse 78, respiratory rate 16, oxygen sat 98% on room air, blood pressure 156/50. HEENT: NCAT. Heart: S1, S2 present. Regular rate and rhythm. Lungs: Clear to auscultation. Abdomen: Soft, nondistended. Hypoactive bowel sounds. No rebound. No guarding. Extremities: No edema. Neuro: Alert, oriented. MEDICATION LIST AT TIME OF DISCHARGE: 1. Flecainide 50 mg p.o. b.i.d. 2. Premarin 0.625 vaginal daily. 3. Synthroid 50 mcg p.o. daily. 4. Simvastatin 20 mg p.o. daily. 5. Oxazepam 10 mg p.o. daily. 6. Digoxin 0.125 mg p.o. daily. 7. Aspirin 325 mg p.o. daily. LABORATORY DATA AT TIME OF DISCHARGE: Sodium 134. New potassium pending, initial potassium prior to replacement 2.9. Chloride 101, CO2 of 20, BUN 9, creatinine 0.49. IMAGING: Abdominal x-ray from today, several distended gaseous loops of bowel have decreased in caliber, increased oral contrast in the ascending colon. Abdomen pelvis CT initially on 01/14/19: 1. Distended and mildly dilated loops of small bowel proximally with decompressed loops distally consistent with early or partial small bowel obstruction. 2. Small amount of free fluid in the abdomen. 3. Postsurgical changes in the distal colon with diverticulosis of the distal colon. 4. Atherosclerosis. The patient was also seen by General Surgery, Moriah Munroe NP, and was followed through hospital course. Surgery recommended conservative management as above with no need for surgery. DISCHARGE INSTRUCTIONS: 1. The patient to follow up with her PCP within a day of reaching [place]. 2. The patient to recheck her labs including BMP when she reaches [place]. 3. The patient to go very slow in advancing diet and be on a full liquid diet for 2 to 3 days and then slowly transition to a soft diet. 4. The patient to sign a release, so we can send her medical records for her PCP. DISPOSITION: Home. CONDITION: Stable. TIME SPENT: Total time spent on discharge is equal to 45 minutes. Please also note, offered the patient to stay further in the hospital, but the patient wants to go home today and reports that she will be on a full liquid diet at home and reports that she feels significantly better than when she came to the hospital and wants to slowly advance her diet at home and wishes to go home. ADDENDUM: Repeat BMP shows that her potassium is 3. Her bicarb with administration of 1 tab sodium bicarbonate 1300 mg is improved and is at 24. As her potassium is still low, we will also discharge the patient on KCl 20 mEq once a day for a total of 4 days. The patient to have her BMP checked when she reaches [place] with her PCP to decide if she needs further potassium or this can be stopped. Most likely, the patient should not need further potassium as this is likely from GI loss with resolution of her SBO. We will, however, send the patient a prescription for potassium as she is also on digoxin and hypokalemia can predispose to dig toxicity. The patient already replaced this morning with potassium and will be discharged on p.o. potassium for 4 days. [id number]/[facility]PS #: [id number] A- [id number]/CPS #: [id number] ALEJANDRA
--- NOTE | 2019-01-18 19:28 | DS ---
DISCHARGE SUMMARY: ADDENDUM: Repeat BMP shows that her potassium is 3. Her bicarb with administration of 1 tab sodium bicarbonate 1300 mg is improved and is at 24. As her potassium is still low, we will also discharge the patient on KCl 20 mEq once a day for a total of 4 days. The patient to have her BMP checked when she reaches [place] with her PCP to decide if she needs further potassium or this can be stopped. Most likely, the patient should not need further potassium as this is likely from GI loss with resolution of her SBO. We will, however, send the patient a prescription for potassium as she is also on digoxin and hypokalemia can predispose to dig toxicity. The patient already replaced this morning with potassium and will be discharged on p.o. potassium for 4 days. [id number]/[facility] [place] #: [id number] ALEJANDRA
== END 2019-01-18 14:45 | disposition home or self-care (01) | DRG 389 ==
LOC: EDBD → ED 06:49 → SSU 13:16 → OBSVTOIN 01-15 10:21
PROVIDERS: ADMIT Internal Medicine; ATTEND Internal Medicine
PROC: 0D9670Z Drainage of Stomach with Drainage Device, Via Natural or Artificial Opening (ICD-10-PCS; principal; 2019-01-16)
DX: K56.600 Partial intestinal obstruction, unspecified as to cause (principal); E87.1 Hypo-osmolality and hyponatremia; K43.9 Ventral hernia without obstruction or gangrene; E03.9 Hypothyroidism, unspecified; I48.91 Unspecified atrial fibrillation; E78.5 Hyperlipidemia, unspecified; F41.9 Anxiety disorder, unspecified; K57.30 Diverticulosis of large intestine without perforation or abscess without bleeding; I16.0 Hypertensive urgency; E87.6 Hypokalemia; Z66 Do not resuscitate; J02.9 Acute pharyngitis, unspecified; H92.01 Otalgia, right ear; Z90.722 Acquired absence of ovaries, bilateral; Z90.710 Acquired absence of both cervix and uterus; Z91.041 Radiographic dye allergy status; Z72.89 Other problems related to lifestyle; Z90.49 Acquired absence of other specified parts of digestive tract; Z93.3 Colostomy status; Z79.82 Long term (current) use of aspirin
CPT/HCPCS: 36415; 74018; 74019; 74176; 80048; 80053; 80162; 81003; 83605; 83690; 83735; 84443; 85025; 93005; 99284; A9270-GY; G0378; J0360; J1160; J1644; J1885; J2060; J2270; J2405; J3480